=== PATIENT | male | born 1975 | race Hispanic/Latino ===

== ENCOUNTER 2019-07-07 15:25 | Emergency (ER) | payer OTHER ==
[2019-07-07] MEDS ORDERED: ACETAMINOPHEN EXTRA STRENGTH 500 MG TABLET ONE (15:37)
== END 2019-07-07 16:20 ==
LOC: EDH 15:25
DX: S09.8XXA Other specified injuries of head, initial encounter (principal); M54.5 Low back pain; I10 Essential (primary) hypertension; Z88.6 Allergy status to analgesic agent; Y08.89XA Assault by other specified means, initial encounter; Y93.89 Activity, other specified; Y92.89 Other specified places as the place of occurrence of the external cause; Y99.8 Other external cause status

== ENCOUNTER 2021-02-21 12:20 | Emergency (ER) | payer SELFPAY ==
[2021-02-21] MEDS ORDERED: KETOROLAC TROMETHAMINE 60 MG/2 ML VIAL ONE (13:22)
[2021-02-21] MEDS ORDERED: ACETAMINOPHEN EXTRA STRENGTH 500 MG TABLET ONE (13:22)
[2021-02-21] MEDS ORDERED: TETANUS/DIPHTHERIA TOXOID [ADULT] 0.5 ML VIAL IM ONE (13:23)
[2021-02-21] MEDS ORDERED: TRAMADOL HCL 50 MG TABLET ONE (13:36)
[2021-02-21] MEDS ORDERED: CYCLOBENZAPRINE HCL 10 MG TABLET ONE (13:36)
== END 2021-02-21 14:26 | disposition home or self-care (01) ==
LOC: EDH 12:20
DX: S30.0XXA Contusion of lower back and pelvis, initial encounter (principal); S60.221A Contusion of right hand, initial encounter; I10 Essential (primary) hypertension; Z72.0 Tobacco use; Z88.6 Allergy status to analgesic agent; Y00.XXXA Assault by blunt object, initial encounter; Y93.89 Activity, other specified; Y92.89 Other specified places as the place of occurrence of the external cause; Y99.8 Other external cause status
CPT/HCPCS: 72100; 73130; 90471; 90714; 99284; J1885